=== PATIENT | male | born 1950 | race Caucasian/White ===

== ENCOUNTER 2017-07-09 20:00 | Day surgery (SDC) | payer OTHER, MEDICARE ==
[2017-07-09] MEDS ORDERED: Diphtheria,Pertussis(Acell),Tetanus Vaccine 0.5 ML SDV IM ONE (20:19)
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
[2017-07-09] MEDS ORDERED: ceFAZolin 2 GM in Premix Bag 1 BAG IV ONE (20:59)
--- NOTE | 2017-07-09 21:21 | PCM.PREANE ---
Preanesthetic Assessment - Anesthesia/Transfusion/Family Hx Anesthesia History: Prior Anesthesia Without Reaction Family History of Anesthesia Reaction: No Transfusion History: No Prior Transfusion(s) Intubation History: Unknown - Review of Systems General: No Symptoms Pulmonary: No Symptoms (CIGARS: 3/DAY TIMES 18 YEARS.) Cardiovascular: No Symptoms Gastrointestinal: No Symptoms Neurological: No Symptoms Other: Reports: None - Physical Assessment NPO Status Date: 07/09/17 NPO Status Time: 12:00 Pulse: 86 O2 Sat by Pulse Oximetry: 99 Respiratory Rate: 16 Blood Pressure: 134/92 Temperature: 36.3 C Vital Signs: Last Vital Signs Temp 36.3 C 07/09/17 20:15 Pulse 86 07/09/17 20:15 Resp 16 07/09/17 20:15 BP 134/92 H 07/09/17 20:15 Pulse Ox 99 07/09/17 20:15 Height: 1.78 m Weight: 79.379 kg ASA Class: 1E Mental Status: Alert & Oriented x3 Airway Class: Mallampati = 2 Dentition: Reports: Normal Dentition, [place](s), Caries Thyro-Mental Finger Breadths: 3 Mouth Opening Finger Breadths: 3 ROM/Head Extension: Full Lungs: Clear to Auscultation, Normal Respiratory Effort Cardiovascular: Regular Rate, Regular Rhythm, No Murmurs - Lab Values: Laboratory Last Values WBC 10.60 K/mm3 (4.23-9.07) H 07/09/17 20:10 RBC 4.64 M/mm3 (4.63-6.08) 07/09/17 20:10 Hgb 14.0 gm/L (13.7-17.5) 07/09/17 20:10 Hct 40.5 % (40.1-51.0) 07/09/17 20:10 MCV 87.3 fl (79.0-92.2) 07/09/17 20:10 MCH 30.2 pg (25.7-32.2) 07/09/17 20:10 MCHC 34.6 g/dl (32.2-35.5) 07/09/17 20:10 RDW Std Deviation 41.0 fL (35.1-43.9) 07/09/17 20:10 Plt Count 173 K/mm3 (163-337) 07/09/17 20:10 MPV 10.7 fl (9.4-12.3) 07/09/17 20:10 Neutrophils % (Manual) 88 % (40-60) H 07/09/17 20:10 Band Neutrophils % 0 % (0-10) 07/09/17 20:10 Lymphocytes % (Manual) 10 % (20-40) L 07/09/17 20:10 Atypical Lymphs % 0 % 07/09/17 20:10 Monocytes % (Manual) 0 % (2-10) L 07/09/17 20:10 Eosinophils % (Manual) 2 % (0.8-7.0) 07/09/17 20:10 Basophils % (Manual) 0 (0.2-1.2) L 07/09/17 20:10 Platelet Estimate Adequate 07/09/17 20:10 RBC Morph Comment Normal 07/09/17 20:10 PT 10.5 SECONDS (8.0-13.0) 07/09/17 20:10 INR 0.98 07/09/17 20:10 APTT 26 SECONDS (22-36) 07/09/17 20:10 Sodium 142 mEq/L (136-145) 07/09/17 20:10 Potassium 4.5 mEq/L (3.5-5.1) 07/09/17 20:10 Chloride 105 mEq/L (98-107) 07/09/17 20:10 Carbon Dioxide 30 mEq/L (21-32) 07/09/17 20:10 Anion Gap 11.5 (5-15) 07/09/17 20:10 BUN 19 mg/dL (7-18) H 07/09/17 20:10 Creatinine 0.8 mg/dL (0.7-1.3) 07/09/17 20:10 Est Cr Clr Drug Dosing 91.25 mL/min 07/09/17 20:10 Estimated GFR (MDRD) > 60 mL/min (>60) 07/09/17 20:10 BUN/Creatinine Ratio 23.8 (14-18) H 07/09/17 20:10 Glucose 117 mg/dL (80-115) H 07/09/17 20:10 Calcium 9.5 mg/dL (8.5-10.1) 07/09/17 20:10 Total Bilirubin 0.7 mg/dL (0.2-1.0) 07/09/17 20:10 AST 23 U/L (15-37) 07/09/17 20:10 ALT 27 U/L (16-63) 07/09/17 20:10 Alkaline Phosphatase 73 U/L (46-116) 07/09/17 20:10 Total Protein 7.7 g/dl (6.4-8.2) 07/09/17 20:10 Albumin 4.1 g/dl (3.4-5.0) 07/09/17 20:10 Globulin 3.6 gm/dL 07/09/17 20:10 Albumin/Globulin Ratio 1.1 (1-2) 07/09/17 20:10 Lipase 126 U/L (73-393) 07/09/17 20:10 Ethyl Alcohol 0.00 gm% (0.00) 07/09/17 20:10 Above labs reviewed and noted and within acceptable ranges to proceed with scheduled procedure. - Allergies Allergies/Adverse Reactions: Allergies Allergy/AdvReac Type Severity Reaction Status Date / Time No Known Allergies Allergy Verified 07/09/17 20:28 - Anesthesia Plan Pre-Op Medication Ordered: None - Acknowledgements Anesthesia Type Planned: General Anesthesia, XAVI Pt an Appropriate Candidate for the Planned Anesthesia: Yes Alternatives and Risks of Anesthesia Discussed w Pt/Guardian: Yes Pt/Guardian Understands and Agrees with Anesthesia Plan: Yes PreAnesthesia Questionnaire - Past Surgical History HEENT Surgical History: Reports: Naso-Sinus Surgery - SUBSTANCE USE Smoking Status *Q: Current Every Day Smoker Tobacco Use Within Last Twelve Months: Cigars Recreational Drug Use History: No - HOME MEDS Home Medications: Home Meds . [No Known Home Meds] 07/09/17 [History] - CURRENT (IN HOUSE) MEDS Current Meds: Current Medications Cefazolin Sodium/Dextrose 2 gm (/ Premix) 50 mls @ 100 mls/hr IV ONETIME ONE Stop: 07/09/17 21:28 Last Admin: 07/09/17 21:14 Dose: 100 mls/hr Discontinued Medications Diphtheria/Tetanus/Acell Pertussis (Adacel) 0.5 ml IM .ONCE ONE Stop: 07/09/17 20:20
[2017-07-09] MEDS ORDERED: Acetaminophen/HYDROcodone 325-5 MG Tab PO PRN (21:45)
[2017-07-09] MEDS ORDERED: Ondansetron 4 MG/2 ML SDV IVPUSH PRN ×3 (21:45→22:32)
[2017-07-09] MEDS ORDERED: Ketorolac 15 MG/ML SDV IVPUSH PRN (21:45)
[2017-07-09] MEDS ORDERED: traMADol 50 MG Tab PO PRN (21:46)
[2017-07-09] MEDS ORDERED: Ketorolac 30 MG/ML SDV IVPUSH PRN (21:46)
[2017-07-09] MEDS ORDERED: cefTRIAXone 1 GM in Sodium Chloride 0.9% 100 ML IV ONE (21:46)
[2017-07-09] MEDS ORDERED: Iodine/Sodium Iodide 2% Tincture 30 ML Bottle ONE (21:54)
[2017-07-09] MEDS ORDERED: Lidocaine 1% 4 ML ONE (22:18)
[2017-07-09] MEDS ORDERED: Lidocaine 0.5% 50 ML SDV ONE (22:18)
[2017-07-09] MEDS ORDERED: Propofol 200 MG/20 ML SDV ONE ×2 (22:18→23:33)
[2017-07-09] MEDS ORDERED: Lactated Ringers 1,000 ML ONE ×2 (22:18→22:53)
[2017-07-09] MEDS ORDERED: Ondansetron 4 MG/2 ML SDV ONE (22:18)
[2017-07-09] MEDS ORDERED: Sodium Bicarbonate 8.4% 50 MEQ/50 ML SDV ONE (22:18)
[2017-07-09] MEDS ORDERED: fentaNYL 100 MCG/2 ML SDV ONE (22:19)
[2017-07-09] MEDS ORDERED: Midazolam 1 MG/ML 2 ML SDV ONE (22:19)
[2017-07-09] MEDS ORDERED: Ketamine 500 mg/10 ML MDV ONE (22:20)
[2017-07-09] MEDS ORDERED: HYDROmorphone 1 MG/ML Syringe IVPUSH PRN (22:32)
[2017-07-09] MEDS ORDERED: ePHEDrine 50 MG/ML SDV IVPUSH PRN (22:32)
[2017-07-09] MEDS ORDERED: diphenhydrAMINE 50 MG/ML SDV IVPUSH PRN (22:32)
[2017-07-09] MEDS ORDERED: HYDROmorphone 1 MG/ML Syringe ONE (23:17)
--- NOTE | 2017-07-10 00:01 | PCM.POSTAN ---
POST ANESTHESIA ASSESSMENT - MENTAL STATUS Mental Status: Alert - VITAL SIGNS Pulse Rate: 83 SaO2: 99 Resp Rate: 12 Blood Pressure: 119/90 Temperature: 36.9 C - RESPIRATORY Respiratory Status: Respiratory Rate WNL, Airway Patent, O2 Saturation Stable - CARDIOVASCULAR CV Status: Pulse Rate WNL, Blood Pressure Stable - GASTROINTESTINAL GI Status: No Symptoms - POST OP HYDRATION Hydration Status: Adequate & Stable
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
--- NOTE | 2017-07-10 01:42 | PCM48HPAN ---
Post Anesthesia Note - EVALUATION WITHIN 48HRS OF ANESTHETIC Vital Signs in Normal Range: Yes Patient Participated in Evaluation: Yes Respiratory Function Stable: Yes Airway Patent: Yes Cardiovascular Function Stable: Yes Hydration Status Stable: Yes Pain Control Satisfactory: Yes Nausea and Vomiting Control Satisfactory: Yes Mental Status Recovered: Yes
--- NOTE | 2017-07-10 07:37 | CR ---
Right hand: Four views of the right hand were obtained. Soft tissue injury is identified within the second, third and fourth fingers. Degenerative change is noted within the DIP joints which is most severe within the third and fifth fingers. Joint space narrowing and osteophytes are also noted within the CMC joint of the thumb. No acute bony abnormality is identified. Impression: 1. Soft tissue injury. 2. Degenerative change. 3. No acute bony abnormality is identified on right hand exam. Diagnostic code #2
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
== END 2017-07-10 12:50 | disposition home or self-care (01) ==
LOC: JD.ED 20:00 → JD.SDS 21:23
PROVIDERS: ATTEND Specialist
DX: S66.320A Laceration of extensor muscle, fascia and tendon of right index finger at wrist and hand level, initial encounter (principal); S61.214A Laceration without foreign body of right ring finger without damage to nail, initial encounter; S61.216A Laceration without foreign body of right little finger without damage to nail, initial encounter; V89.2XXA Person injured in unspecified motor-vehicle accident, traffic, initial encounter; Y93.29 Activity, other involving ice and snow; Y92.411 Interstate highway as the place of occurrence of the external cause; Z79.82 Long term (current) use of aspirin; Z79.899 Other long term (current) drug therapy; F17.210 Nicotine dependence, cigarettes, uncomplicated
CPT/HCPCS: 12004; 26418; 36415; 73130; 80053; 83690; 85025; 85610; 85730; 90471; 90715; 94762; 96365; 99285; A9270; G0480; J0690; J0696; J1170; J2250; J2405; J3010; J7030; J7120; 99284; J2704